=== PATIENT | female | born 1980 | race Two or more races ===

== ENCOUNTER 2019-03-19 14:45 | Inpatient (IN) | payer OTHER ==
[~2019-03-19] VITALS: Ht 170.2 cm; Wt 71.2 kg
[2019-04-13] MEDS ORDERED: PRENATAL CAPLE1 EAC1 PO (08:37)
== END 2019-04-15 13:21 | disposition home or self-care (01) | DRG 768 ==
LOC: O/R 14:45 → OB/GYN 04-11 14:45 → LDR 04-13 06:07 → OB/GYN 04-13 18:00
PROVIDERS: ADMIT Obstetrics & Gynecology Maternal & Fetal Medicine
PROC: 10E0XZZ Delivery of Products of Conception, External Approach (ICD-10-PCS; principal; 2019-04-13)
PROC: 0DQR0ZZ Repair Anal Sphincter, Open Approach (ICD-10-PCS; 2019-04-13)
PROC: 0W8NXZZ Division of Female Perineum, External Approach (ICD-10-PCS; 2019-04-13)
PROC: 3E033VJ Introduction of Other Hormone into Peripheral Vein, Percutaneous Approach (ICD-10-PCS; 2019-04-13)
PROC: 10907ZC Drainage of Amniotic Fluid, Therapeutic from Products of Conception, Via Natural or Artificial Opening (ICD-10-PCS; 2019-04-13)
PROC: 4A1HXCZ Monitoring of Products of Conception, Cardiac Rate, External Approach (ICD-10-PCS; 2019-04-13)
DX: O70.22 Third degree perineal laceration during delivery, IIIb (principal); Z37.0 Single live birth; Z3A.40 40 weeks gestation of pregnancy

== ENCOUNTER 2020-02-23 09:00 | Day surgery (SDC) | payer OTHER ==
[~2020-02-23 09:00] MED LIST: PRENATAL CAPLE1 EAC1 PO
== END 2020-02-23 15:40 | disposition home or self-care (01) ==
LOC: CIR.AMB 09:00
PROVIDERS: ATTEND Obstetrics & Gynecology Maternal & Fetal Medicine
DX: O02.1 Missed abortion (principal); Z20.828 Contact with and (suspected) exposure to other viral communicable diseases

== ENCOUNTER 2021-03-26 17:17 | Outpatient (CLI) | payer OTHER | END 2021-03-26 17:45 | disposition home or self-care (01) | LOC: NST 17:17 | PROVIDERS: ATTEND Obstetrics & Gynecology | DX: Z34.83 Encounter for supervision of other normal pregnancy, third trimester (principal) ==

== ENCOUNTER 2021-04-03 08:00 | Inpatient (IN) | payer OTHER ==
[~2021-04-03] VITALS: Ht 170.2 cm; Wt 2.7 kg
[2021-04-03] MEDS ORDERED: [UNRECOGNIZED DRUG - OTHER] PO (09:22)
== END 2021-04-12 19:19 | disposition home or self-care (01) | DRG 788 ==
LOC: OB/GYN 04-10 07:00 → O/R 04-10 14:40 → OB/GYN 04-10 17:36
PROVIDERS: ADMIT Obstetrics & Gynecology; ATTEND Obstetrics & Gynecology
PROC: 4A1HXFZ Monitoring of Products of Conception, Cardiac Rhythm, External Approach (ICD-10-PCS; 2021-04-10)
PROC: 10D00Z1 Extraction of Products of Conception, Low, Open Approach (ICD-10-PCS; principal; 2021-04-10 07:00)
DX: O32.1XX0 Maternal care for breech presentation, not applicable or unspecified (principal); Z37.0 Single live birth; Z3A.39 39 weeks gestation of pregnancy